=== PATIENT | female | born 1995 | race Caucasian/White ===

== ENCOUNTER 2020-05-19 13:33 | Emergency (ER) | payer SELFPAY ==
--- NOTE | 2020-05-19 14:25 | ER Document Report ---
ED Medical Screen (RME) - General Chief Complaint: Vomiting Stated Complaint: VOMITING Time Seen by Provider: 05/19/20 14:21 Mode of Arrival: Wheelchair Information source: Patient Notes: 24-year-old female presented to ED for complaint of nausea and vomiting early . She states she had a positive test on the fourth fifth and 02 May. She states for the last 2 days she has not been able to keep anything down. She states she been taking Phenergan and then she took Zofran and still not keeping anything down. She states last menstrual period was April 07. She states she has had some implantation bleeding since then. Will get blood urine and transvaginal ultrasound as well as a RhoGam and she will be seen by another provider. Will order some IV fluids when she gets to her room. I have greeted and performed a rapid initial assessment of this patient. A comprehensive ED assessment and evaluation of the patient, analysis of test results and completion of medical decision making process will be conducted by an additional ED providers. TRAVEL OUTSIDE OF THE [place] IN LAST 30 DAYS: No - Related Data Allergies/Adverse Reactions: No Known Allergies Allergy (Unverified 06/22/15 18:29) Physical Exam - Vital signs Vitals: Temp Pulse Resp BP Pulse Ox 98.1 F 76 16 125/86 H 100 05/19/20 13:36 05/19/20 13:36 05/19/20 13:36 05/19/20 13:36 05/19/20 13:36 Course - Vital Signs Vital signs: Temp Pulse Resp BP Pulse Ox 98.1 F 76 16 125/86 H 100 05/19/20 13:36 05/19/20 13:36 05/19/20 13:36 05/19/20 13:36 05/19/20 13:36
[2020-05-19] MEDS ORDERED: NORMAL SALINE 1000 ML 1,000 ML IV ONE (14:28)
[2020-05-19 15:16] LABS: ABSOLUTE MONOCYTES (AUTO) 0.3 10^3/uL (0.1-1.4); ABSOLUTE NEUT (AUTO) 11.3 10^3/uL (1.7-8.2); BASOPHILS % (AUTO) 0.3 % (0-2); MEAN CORPUSCULAR HEMOGLOBIN 31.1 pg (27.0-33.4); MEAN CORPUSCULAR HGB CONC 35.8 g/dL (32.0-36.0); MEAN CORPUSCULAR VOLUME 87 fl (80-97); MONOCYTES % (AUTO) 2.1 % (3-13); PLATELET COUNT 298 10^3/uL (150-450); RED BLOOD COUNT 4.84 10^6/uL (3.72-5.28); RED CELL DISTRIBUTION WIDTH 12.7 % (11.5-14.0); SEGMENTED NEUTROPHILS % (AUTO) 89.6 % (42-78); TOTAL CELLS COUNTED % (AUTO) 100 %; WHITE BLOOD COUNT 12.6 10^3/uL (4.0-10.5)
[2020-05-19 15:35] LABS: ALBUMIN 4.8 g/dL (3.5-5.0); ALKALINE PHOSPHATASE 62 U/L (38-126); ANION GAP 14 (5-19); ASPARTATE AMINO TRANSFERASE 18 U/L (14-36); BILIRUBIN,DIRECT 0.1 mg/dL (0.0-0.4); BILIRUBIN,TOTAL 0.7 mg/dL (0.2-1.3); BLOOD UREA NITROGEN 9 mg/dL (7-20); CALCIUM 10.1 mg/dL (8.4-10.2); CARBON DIOXIDE 21 mmol/L (22-30); CHLORIDE 103 mmol/L (98-107); GLUCOSE 119 mg/dL (75-110); TOTAL PROTEIN 7.9 g/dL (6.3-8.2)
[2020-05-19] MEDS ORDERED: ONDANSETRON HCL INJ/PF 4 MG/2 ML SDV IV ONE (17:12)
--- NOTE | 2020-05-19 17:19 | ER Document Report ---
ED GI/ - General Chief Complaint: Vomiting Stated Complaint: VOMITING Time Seen by Provider: 05/19/20 14:21 Mode of Arrival: Wheelchair Notes: CHIEF COMPLAINT: Vomiting in HPI: 24-year-old female presenting to the emergency department complaining of 2 days of recurrent constant vomiting. Patient states she had positive tests at the beginning of April. This is her first . Patient has had nausea in the morning but the last 2 days has had nonstop vomiting 10-20 episodes daily. Denies abdominal pain. Denies current vaginal bleeding. Denies unilateral pelvic pain. Denies fever ROS: See HPI - all other systems were reviewed and are otherwise negative Constitutional: no fever Eyes: no drainage ENT: no runny nose Cardiovascular: no chest pain Resp: no SOB, no cough GI: + vomiting, no diarrhea, no abdominal pain : no dysuria Integumentary: no rash Allergy: no hives Musculoskeletal: no extremity pain or swelling Neurological: no numbness/tingling, no weakness MEDICATIONS: I agree with the patient medications as charted by the RN. ALLERGIES: I agree with the allergies as charted by the RN. PAST MEDICAL HISTORY/PAST SURGICAL HISTORY: Reviewed and agree as charted by RN. SOCIAL HISTORY: Reviewed and agree as charted by RN. FAMILY HISTORY: No significant familial comorbid conditions directly related to patient complaint EXAM: Reviewed vital signs as charted by RN. CONSTITUTIONAL: Alert and oriented and responds appropriately to questions. Well-appearing; well-nourished HEAD: Normocephalic; atraumatic EYES: PERRL; Conjunctivae clear, sclerae non-icteric ENT: normal nose; no rhinorrhea; moist mucous membranes; pharynx without lesions noted NECK: Supple without meningismus CARD: RRR; no murmurs, no clicks, no rubs, no gallops; symmetric distal pulses RESP: Normal chest excursion without splinting or tachypnea; breath sounds clear and equal bilaterally; no wheezes, no rhonchi, no rales, pulse oximetry 97% on room air not hypoxic ABD/GI: Normal bowel sounds; non-distended; soft, non-tender, no rebound, no guarding; no palpable organomegaly or masses. BACK: The back appears normal and is non-tender to palpation, there is no CVA tenderness EXT: Normal ROM in all joints; non-tender to palpation; no cyanosis, no effusions, no edema SKIN: Normal color for age and race; warm; dry; good turgor; no acute lesions noted NEURO: Moves all extremities equally; Motor and sensory function intact PSYCH: The patient's mood and manner are appropriate. Grooming and personal hygiene are appropriate. MDM: 24-year-old female presenting with hyperemesis in . Initial screening labs obtained via triage process did not show any acute abnormalities. Awaiting urinalysis. Patient is receiving antiemetics and hydration currently will reassess. She is spouses no vaginal bleeding at this time. No vaginal discharge no pelvic pain TRAVEL OUTSIDE OF THE [place] IN LAST 30 DAYS: No - Related Data Allergies/Adverse Reactions: No Known Allergies Allergy (Unverified 06/22/15 18:29) Past Medical History - General Information source: Patient - Social History Smoking Status: Unknown if Ever Smoked Family History: Reviewed & Not Pertinent Physical Exam - Vital signs Vitals: Temp Pulse Resp BP Pulse Ox 98.1 F 76 16 125/86 H 100 05/19/20 13:36 05/19/20 13:36 05/19/20 13:36 05/19/20 13:36 05/19/20 13:36 Course - Re-evaluation Re-evalutation: 05/19/20 18:12 Still awaiting ultrasound read. Patient nausea has improved. She will start sipping on p.o. fluids. 05/19/20 18:41 Patient ultrasound shows an intrauterine dating approximately 9 weeks and 2 days I discussed this with the patient. She is having the vaginal bleeding complaints at this time. She is tolerating oral fluids. Anticipate discharge home to follow-up with [facility]. 05/19/20 18:42 Patient's blood type is O+. - Vital Signs Vital signs: Temp Pulse Resp BP Pulse Ox 98.1 F 76 16 125/86 H 100 05/19/20 17:25 05/19/20 13:36 05/19/20 13:36 05/19/20 13:36 05/19/20 13:36 - Laboratory Results Result Diagrams: 05/19/20 14:45 05/19/20 14:45 Laboratory Results Interpreted: 05/19/20 05/19/20 05/19/20 14:45 14:45 14:45 WBC 12.6 H Lymph % (Auto) 8.0 L [place] % (Auto) 2.1 L Absolute Neuts (auto) 11.3 H Seg Neutrophils % 89.6 H Carbon Dioxide 21 L Glucose 119 H Beta HCG, Quant 38429.00 H Urine Protein 100 H Urine Glucose (UA) 50 H Urine Ketones 80 H Urine Blood SMALL H Urine Ascorbic Acid 40 H Critical Laboratory Results Reviewed: No Critical Results - Radiology Results Critical Radiology Results Reviewed: No Critical Results Discharge - Discharge Clinical Impression: Hyperemesis gravidarum Qualifiers: Weeks of gestation: 9 weeks Qualified Code(s): Z3A.09 - 9 weeks gestation of Condition: Stable Disposition: HOME, SELF-CARE Additional Instructions: it was noted on your imaging studies today that you are approximately 9 weeks and 2 days . Take Zofran for any recurrent nausea vomiting push fluids at home. Return for any recurrent vomiting or concerns such as vaginal bleeding . Follow-up with [facility] for further evaluation and treatment call for appointment. Prescriptions: Ondansetron [Zofran Odt 4 mg Tablet] 1 - 2 tab PO Q4H PRN #15 tab.rapdis PRN Reason: For Nausea/Vomiting Referrals: WINDY AGOSTO MD [ACTIVE STAFF] - Follow up as needed
[2020-05-19 17:29] LABS: APPEARANCE,URINE CLOUDY; BILIRUBIN,URINE NEGATIVE (NEGATIVE); COLOR,URINE YELLOW; GLUCOSE, URINE 50 mg/dL (NEGATIVE); KETONES,URINE 80 mg/dL (NEGATIVE); LEUKOCYTE ESTERASE,URINE NEGATIVE (NEGATIVE); NITRITE,URINE NEGATIVE (NEGATIVE); PROTEIN,URINE 100 mg/dL (NEGATIVE); URINE SPECIFIC GRAVITY 1.031; UROBILINOGEN,URINE NEGATIVE mg/dL (<2.0)
--- NOTE | 2020-05-19 18:20 | RADIOLOGY REPORT (SQ) ---
EXAM DESCRIPTION: U/S OB TRANSVAG W/DOPPLER IMAGES COMPLETED DATE/TIME: 05/19/2020 3:19 pm REASON FOR STUDY: Possible , nausea and vomiting, unable to COMPARISON: None. TECHNIQUE: Transvaginal static and realtime grayscale images acquired of the pelvis. Additional tammy cted spectral and color Doppler images recorded. All images stored on PACs. bHCG: Not available. CLINICAL DATES: LMP 04/07/2020 6 weeks 0 days LIMITATIONS: None. FINDINGS: FETUS: Single Living intrauterine . ULTRASOUND EGA: 9 weeks 2 days ULTRASOUND BILL: 12/20/2020 EFW: Not applicable less than 20 weeks. CRL: 2.52 cm. FHR: 185 beats per minute. SURVEY: No visualized anomalies. AMNIOTIC FLUID: Adequate amount. PLACENTA: Not yet developed due to early gestation. SUBCHORIONIC BLEED: No SIZE OF BLEED: Not applicable. UTERUS: No masses. No anomalies. CERVICAL LENGTH: 2.8 cm. Closed. RIGHT ADNEXA: Normal ovary with normal vascular flow. 3 x 2.3 x 2 cm No adnexal free fluid. No adnexal masses. LEFT ADNEXA: Normal ovary with normal vascular flow. 4.4 x 2.9 x 2.5 cm. No adnexal free fluid. No adnexal masses. FREE FLUID: None. OTHER: No other significant finding. IMPRESSION: LIVING INTRAUTERINE . EGA 9 weeks 2 days Trimester of : First trimester - 0 to 13 weeks. TECHNICAL DOCUMENTATION: JOB ID: [id number] [employer]- All Rights Reserved rev-10/11 Reading location - IP/workstation name: [email or web address]
[2020-05-19] MEDS ORDERED: ONDANSETRON 4 MG TAB.RAPDIS PO ONE (18:41)
[2020-05-19 19:56] VITALS: BP 132/73
== END 2020-05-19 19:56 | disposition home or self-care (01) ==
LOC: ER 13:33
DX: O21.0 Mild hyperemesis gravidarum (principal); Z3A.09 9 weeks gestation of pregnancy
CPT/HCPCS: 99285; 96361; 96374; 86900; 86901; 36415; 87086; 84702; 85025; 80053; 81001; 76817; 93976; S0119; J2405; J7030